=== PATIENT | female | born 2000 | race African-American/Black ===

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

== ENCOUNTER 2021-02-11 09:31 | Emergency (ER) | payer OTHER ==
[~2021-02-11] VITALS: Ht 157.5 cm; Wt 76.0 kg
--- NOTE | 2021-02-11 12:41 | REP ---
INDICATION: LATERAL ANKLE PAIN S/P TWISTING INJURY COMPARISON: None. TECHNIQUE: There are four views. FINDINGS: There is no fracture or dislocation. Mineralization and joint spaces are normal. There are no calcifications or foreign bodies. IMPRESSION: Negative left ankle.. <Electronically signed by Tyson Fry > 02/11/21 [id number]
--- NOTE | 2021-02-11 12:42 | REP ---
INDICATION: ANTEROMEDIAL KNEE PAIN, ATRAUMATIC COMPARISON: None. TECHNIQUE: There are five views. FINDINGS: There is no fracture or dislocation. Mineralization and joint spaces are normal. There are no calcifications or foreign bodies. There is no effusion. IMPRESSION: Negative right knee. <Electronically signed by Tyson Fry > 02/11/21 [id number]
[2021-02-11] MEDS ORDERED: IBUP80TA PO (13:22)
[2021-02-11 13:37] VITALS: BP 119/65
== END 2021-02-11 13:37 | disposition home or self-care (01) ==
LOC: M ED 09:31
DX: S93.402A Sprain of unspecified ligament of left ankle, initial encounter (principal); Y93.9 Activity, unspecified; Y99.1 Military activity; M25.561 Pain in right knee